=== PATIENT | male | born 1965 | race Caucasian/White ===

== ENCOUNTER 2017-07-15 11:26 | Inpatient (IN) | payer OTHER ==
[2017-07-15 13:47] VITALS: BMI 25.3
--- NOTE | 2017-07-15 15:41 | HP ---
COWS - Scale Resting Pulse: 2= [place] 101-120 Sweatin=Flushed/Facial Moisture Restless Observation: 1= Difficult to Sit Still Pupil Size: 0= Normal to Room Light Bone or Joint Aches: 2= Severe Diffuse Aches Runny Nose/ Eye Tearin= Runny Nose/Eyes GI Upset > 30mins: 2= Nausea/Diarrhea Tremor Observation: 2= Slight Tremor Visible Yawning Observation: 0= None Anxiety or Irritability: 2=Irritable/Anxious Goose Flesh Skin: 3=Piloerection COWS Score: 18 Admission ROS S - HPI Chief Complaint: I need the help to help my family. Allergies/Adverse Reactions: Allergies Allergy/AdvReac Type Severity Reaction Status Date / Time No Known Allergies Allergy Verified 07/15/17 15:28 History of Present Illness: pt is a 52yr old male with a history of heroin dependence seeking detox for treatment. Exam Limitations: Language Barrier (swiss speaking) - Ebola screening Have you traveled outside of the country in the last 21 days: No Have you had contact with anyone from an Ebola affected area: No Have you been sick,other than usual withdrawal symptoms: No Do you have a fever: No - Review of Systems Constitutional: Chills, Diaphoresis, Loss of Appetite, Night Sweats, Changes in sleep EENT: reports: Tearing, Nose Congestion Respiratory: reports: No Symptoms reported Cardiac: reports: No Symptoms Reported GI: reports: Poor Fluid Intake : reports: No Symptoms Reported Musculoskeletal: reports: Back Pain, Joint Pain Integumentary: reports: No Symptoms Reported, Flushing, Sweating Neuro: reports: Numbness, Tingling Endocrine: reports: Excessive Sweating, Flushing, Intolerance to Cold, Intolerance to Heat Hematology: reports: No Symptoms Reported Psychiatric: reports: Judgement Intact, Mood/Affect Appropiate, Orientated x3, Agitated, Anxious Other Systems: Reviewed and Negative Patient History - Patient Medical History Hx Anemia: No Hx Asthma: No Hx Chronic Obstructive Pulmonary Disease (COPD): No Hx Cancer: No Hx Cardiac Disorders: No Hx Congestive Heart Failure: No Hx Hypertension: No Hx Hypercholesterolemia: No Hx Pacemaker: No HX Cerebrovascular Accident: No Hx Seizures: No Hx Dementia: No Hx Diabetes: No Hx Gastrointestinal Disorders: No Hx Liver Disease: No Hx Genitourinary Disorders: No Hx Sexually Transmitted Disorders: No Hx Renal Disease (ESRD): No Hx Thyroid Disease: No Hx Human Immunodeficiency Virus (HIV): No (negative) Hx Hepatitis C: No (negative) Hx Depression: Yes Hx Suicide Attempt: No Hx Bipolar Disorder: No Hx Schizophrenia: No Other Medical History: insomnia - Patient Surgical History Past Surgical History: No Hx Neurologic Surgery: No Hx Cataract Extraction: No Hx Cardiac Surgery: No Hx Lung Surgery: No Hx Breast Surgery: No Hx Breast Biopsy: No Hx Abdominal Surgery: No Hx Appendectomy: No Hx Cholecystectomy: No Hx Genitourinary Surgery: No Hx Section: No Hx Orthopedic Surgery: No Anesthesia Reaction: No - PPD History Previous Implant?: Yes Documented Results: Negative w/o proof PPD to be Administered?: Yes - Reproductive History Patient is a Female of Child Bearing Age (11 -55 yrs old): No - Smoking Cessation Smoking history: Current every day smoker Have you smoked in the past 12 months: Yes Aproximately how many cigarettes per day: 12 Hx Chewing Tobacco Use: No Initiated information on smoking cessation: Yes 'Breaking Loose' booklet given: 07/15/17 - Substance & Tx. History Hx Alcohol Use: No Hx Substance Use: Yes Substance Use Type: Heroin Hx Substance Use Treatment: Yes (last detox [facility] 2014. was clean for 2yrs ) - Substances Abused Heroin Route: Inhalation Frequency: Daily Amount used: 8-10 bags Age of first use: 15 Date of Last Use: 07/15/17 Family Disease History - Family Disease History Family Disease History: Diabetes: Father, Mother, Brother Admission Physical Exam BHS - Vital Signs Vital Signs: Vital Signs - 24 hr 07/15/17 13:45 Temperature 97 F L Pulse Rate 110 H Respiratory 20 Rate Blood Pressure 154/99 - Physical General Appearance: Yes: Appropriately Dressed, Moderate Distress, Tremorous, Irritable, Sweating, Anxious HEENTM: Yes: Hearing grossly Normal, Normal Voice, Nasal Congestion, Rhinorrhea Respiratory: Yes: Lungs Clear, Normal Breath Sounds, No Respiratory Distress Neck: Yes: No masses,lesions,Nodules Breast: Yes: Within Normal Limits Cardiology: Yes: Regular Rhythm, Regular Rate, S1, S2 Abdominal: Yes: Normal Bowel Sounds, Non Tender Genitourinary: Yes: Within Normal Limits Back: Yes: Normal Inspection Musculoskeletal: Yes: full range of Motion, Back pain Extremities: Yes: Normal Capillary Refill, Normal Inspection, Tremors Neurological: Yes: Fully Oriented, Alert, Normal Response Integumentary: Yes: Within Normal Limits, Normal Color, Diaphoresis Lymphatic: Yes: Within Normal Limits - Diagnostic (1) Nicotine dependence Current Visit: Yes Status: Chronic Qualifiers: Nicotine product type: cigarettes Substance use status: uncomplicated Qualified Code(s): F17.210 - Nicotine dependence, cigarettes, uncomplicated (2) Opioid dependence with withdrawal Current Visit: Yes Status: Chronic Cleared for Admission [facility] - Detox or Rehab [facility] Level of Care: Medically Managed Detox Regimen/Protocol: Methadone [facility] Breath Alcohol Content Breath Alcohol Content: 0 Urine Drug Screen - Results Drug Screen Negative: No Urine Drug Screen Results: OPI-Opiates, MET-Methamphetamine, MDMA-Ecstasy, MTD- Methadone
[2017-07-15] MEDS ORDERED: guaiFENesin/D-METHORPHAN HB 10 ML UNIT-DOSE CUPS PO PRN (15:42)
[2017-07-15] MEDS ORDERED: P-EPHED 60MG/TRIPROLIDI 2.5MG TABLET PO PRN (15:42)
[2017-07-15] MEDS ORDERED: NICOTINE POLACRILEX 2 MG GUM BC PRN (15:42)
[2017-07-15] MEDS ORDERED: MAGNESIUM HYDROX 2400MG/30ML ORAL SUSPENSION 30 ML CUP PO PRN (15:42)
[2017-07-15] MEDS ORDERED: IBUPROFEN 400 MG TABLET (FP) PO PRN (15:42)
[2017-07-15] MEDS ORDERED: hydrOXYzine PAMOATE 50 MG CAPSULE (FP) PO PRN (15:42)
[2017-07-15] MEDS ORDERED: ACETAMINOPHEN 325 MG TABLET (FP) PO PRN (15:42)
[2017-07-15] MEDS ORDERED: MENTHOL/PHENOL 1 EACH UD MM PRN (15:42)
[2017-07-15] MEDS ORDERED: diphenhydrAMINE HCL 50 MG CAPSULE PO PRN (15:42)
[2017-07-15] MEDS ORDERED: MAGNESIUM CITRATE 300 ML BOTTLE PO PRN (15:42)
[2017-07-15] MEDS ORDERED: LOPERAMIDE HCL 2 MG CAPSULE PO PRN (15:42)
[2017-07-15] MEDS ORDERED: MAG HYDROX/AL HYDROX/SIMETH 30 ML UNIT-DOSE CUP PO PRN (15:42)
[2017-07-15] MEDS ORDERED: cloNIDine HCL 0.1 MG TABLET PO ONE (17:15)
[2017-07-15] MEDS ORDERED: METHADONE HCL 10 MG TABLET (FOR DETOX USE ONLY) PO ONE ×2 (17:30→23:00)
[2017-07-15] MEDS: diazePAM 5 MG TABLET PO PRN ×2 (18:08→22:19)
[2017-07-15] MEDS: THIAMINE HCL 100 MG TABLET (FP) PO SCH (22:15)
[2017-07-16 01:41] LABS: URINE APPEARANCE SLCLOUDY; URINE BILIRUBIN NEGATIVE (NEGATIVE); URINE BLOOD NEGATIVE (NEGATIVE); URINE COLOR YELLOW; URINE GLUCOSE (UA) NEGATIVE (NEGATIVE); URINE KETONE NEGATIVE (NEGATIVE); URINE LEUK ESTERASE NEGATIVE (NEGATIVE); URINE NITRITE NEGATIVE (NEGATIVE); URINE PROTEIN NEGATIVE (NEGATIVE); URINE UROBILINOGEN NEGATIVE mg/dL (0.2-1.0)
[2017-07-16] MEDS: diazePAM 5 MG TABLET PO PRN ×3 (05:44→22:06)
--- NOTE | 2017-07-16 09:51 | EKG ---
Test Reason : Blood Pressure : / mmHG Vent. Rate : 086 BPM Atrial Rate : 086 BPM P-R Int : 174 ms QRS Dur : 076 ms QT Int : 358 ms P-R-T Axes : 039 063 049 degrees QTc Int : 428 ms NORMAL SINUS RHYTHM NORMAL ECG NO PREVIOUS ECGS AVAILABLE Confirmed by BRIAN BRIDGES, SUSHANT ([id number]) on 07/16/2017 9:50:59 AM Referred By: Confirmed By:SUSHANT TORRES MD
[2017-07-16] MEDS ORDERED: METHADONE HCL 10 MG TABLET (FOR DETOX USE ONLY) PO ONE (10:00)
[2017-07-16 10:10] LABS: MCH 29.3 pg (25.7-33.7); MCHC 33.1 g/dl (32.0-35.9); MEAN CELL VOLUME 88.4 fl (80-96); MEAN PLT VOLUME 7.9 fl (7.5-11.1); PLATELET COUNT 201 K/MM3 (134-434); RDW 13.2 % (11.9-15.9)
[2017-07-16] MEDS: PRENATAL VITAMINS W/ FOLIC ACID TABLET (FP) PO SCH (10:16)
[2017-07-16] MEDS: NICOTINE 14 MG/24 HOURS TOPICAL PATCH TD SCH (10:18)
[2017-07-16 10:31] LABS: ALBUMIN 3.4 g/dl (3.4-5.0); ANION GAP 8 (8-16); CALCIUM 8.7 mg/dL (8.5-10.1); CO2 30 mmol/L (21-32); GLUCOSE,RANDOM 82 mg/dL (74-106)
[2017-07-16 10:35] LABS: ALK PHOS 73 U/L (45-117); BILIRUBIN,TOTAL 0.3 mg/dL (0.2-1.0); CREATININE 0.7 mg/dL (0.7-1.3); SGOT/AST 6 U/L (15-37); SGPT/ALT 17 U/L (12-78); TOT PROT 6.2 g/dl (6.4-8.2)
--- NOTE | 2017-07-16 11:04 | CONSULT ---
[facility] Psychiatric Consult - Data Date of interview: 07/16/17 Admission source: [facility] Identifying data: Readmission to [facility] for this 52 y/o male seeking detox treatment on for heroin dependence.Patient is single without children,domiciled,unemployed and supported on SSI benefits. Substance Abuse History: Confirmed by patient in this session. Smoking Cessation. Smoking history: Current every day smoker. Have you smoked in the past 12 months: Yes. Aproximately how many cigarettes per day: 12. Hx Chewing Tobacco Use: No. Initiated information on smoking cessation: Yes. 'Breaking Loose' booklet given: 07/15/17. - Substance & Tx. History. Hx Alcohol Use: No. Hx Substance Use: Yes. Substance Use Type: Heroin. Hx Substance Use Treatment: Yes (last detox [facility] 2014. was clean for 2yrs ). - Substances Abused. Heroin. Route: Inhalation. Frequency: Daily. Amount used: 8-10 bags. Age of first use: 15. Date of Last Use: 07/15/17 Medical History: Patient endorses good general health. Psychiatric History: Patient reports a history of three psychiatric hospitalizations (in [facility]).Diagnosed with MDD.Medicated with seroquel 50 mg/hs.Followed by Dr Handy at the [facility] in [facility] ( next appointment is already set for 07/22/17).Mr Maldonado denies history of suicide attempts. Physical/Sexual Abuse/Trauma History: No reported history of abuse. Additional Comment: Urine Drug Screen Results: OPI-Opiates, MET-Methamphetamine , MDMA-Ecstasy, MTD-Methadone.Noted. Mental Status Exam - Mental Status Exam Alert and Oriented to: Time, Place, Person Cognitive Function: Good Patient Appearance: Well Groomed Mood: Hopeful, Euthymic Affect: Normal Range Patient Behavior: Appropriate, Cooperative Speech Pattern: Clear, Appropriate (french-speaking,logical,coherent and relevant) Voice Loudness: Normal Thought Process: Goal Oriented Thought Disorder: Not Present Hallucinations: Denies Suicidal Ideation: Denies Homicidal Ideation: Denies Insight/Judgement: Poor Sleep: Poorly, Difficulty falling asleep Appetite: Good Muscle strength/Tone: Normal Gait/Station: Normal Psychiatric Findings - Problem List ([place] 1, 2,3) (1) Opioid dependence with withdrawal Current Visit: Yes Status: Chronic (2) Nicotine dependence Current Visit: Yes Status: Acute Qualifiers: Nicotine product type: cigarettes Substance use status: uncomplicated Qualified Code(s): F17.210 - Nicotine dependence, cigarettes, uncomplicated (3) MDMA abuse Current Visit: Yes Status: Acute (4) Drug-induced mood disorder Current Visit: Yes Status: Chronic (5) Insomnia Current Visit: Yes Status: Acute - Initial Treatment Plan Initial Treatment Plan: Psychoeducation.Detoxification.Seroquel 50 mg po hs.Side effects/benefits are discussed with the patient.He grees to follow this plan of care.Observation.
--- NOTE | 2017-07-16 13:28 | PN ---
BHS COWS - Scale Resting Pulse: 0= [place] 80 or Below Sweatin=Flushed/Facial Moisture Restless Observation: 1= Difficult to Sit Still Pupil Size: 0= Normal to Room Light Bone or Joint Aches: 2= Severe Diffuse Aches Runny Nose/ Eye Tearin= Runny Nose/Eyes GI Upset > 30mins: 2= Nausea/Diarrhea Tremor Observation of Outstretched Hands: 2= Slight Tremor Visible Yawning Observation: 1= 1-2x During Session Anxiety or Irritability: 2=Irritable/Anxious Goose Flesh Skin: 0=Smooth Skin COWS Score: 14 BHS Progress Note (SOAP) Subjective: Body aches,sweating,anxiety,tremors,restless,nausea. Objective: 07/16/17 13:26 Vital Signs - 8 hr 07/16/17 07/16/17 06:36 09:33 Temperature 97.3 F L 97.2 F L Pulse Rate 73 72 Respiratory 16 18 Rate Blood Pressure 101/71 99/58 Laboratory Tests 07/15/17 07/16/17 07/16/17 23:11 07:00 07:00 WBC 6.0 RBC 4.60 Hgb 13.5 Hct 40.7 MCV 88.4 MCH 29.3 MCHC 33.1 RDW 13.2 Plt Count 201 D MPV 7.9 Sodium 141 Potassium 4.5 Chloride 103 Carbon Dioxide 30 Anion Gap 8 BUN 9 D Creatinine 0.7 Creat Clearance w eGFR > 60 Random Glucose 82 Calcium 8.7 Total Bilirubin 0.3 AST 6 L D ALT 17 D Alkaline Phosphatase 73 Total Protein 6.2 L Albumin 3.4 Urine Color Yellow Urine Appearance Slcloudy Urine pH 5.0 Ur Specific [place] >= 1.030 H Urine Protein Negative Urine Glucose (UA) Negative Urine Ketones Negative Urine Blood Negative Urine Nitrite Negative Urine Bilirubin Negative Urine Urobilinogen Negative RPR Titer 07/16/17 07:00 WBC RBC Hgb Hct MCV MCH MCHC RDW Plt Count MPV Sodium Potassium Chloride Carbon Dioxide Anion Gap BUN Creatinine Creat Clearance w eGFR Random Glucose Calcium Total Bilirubin AST ALT Alkaline Phosphatase Total Protein Albumin Urine Color Urine Appearance Urine pH Ur Specific [place] Urine Protein Urine Glucose (UA) Urine Ketones Urine Blood Urine Nitrite Urine Bilirubin Urine Urobilinogen RPR Titer Nonreactive labs noted Assessment: 07/16/17 13:27 Withdrawal sx. Plan: Continue detox
[2017-07-16] MEDS: THIAMINE HCL 100 MG TABLET (FP) PO SCH (22:05)
[2017-07-16] MEDS: QUEtiapine FUMARATE 50 MG TABLET PO SCH (22:06)
[2017-07-17] MEDS: diazePAM 5 MG TABLET PO PRN ×3 (05:40→22:30)
[2017-07-17] MEDS ORDERED: METHADONE HCL 5 MG TABLET (FOR DETOX USE ONLY) PO ONE (10:00)
[2017-07-17] MEDS: NICOTINE 14 MG/24 HOURS TOPICAL PATCH TD SCH (10:27)
[2017-07-17] MEDS: PRENATAL VITAMINS W/ FOLIC ACID TABLET (FP) PO SCH (10:28)
--- NOTE | 2017-07-17 11:55 | PN ---
BHS COWS - Scale Resting Pulse: 0= [place] 80 or Below Sweatin= Chills/Flushing Restless Observation: 0= Sits Still Pupil Size: 0= Normal to Room Light Bone or Joint Aches: 1= Mild Discomfort Runny Nose/ Eye Tearin= Nasal Congestion GI Upset > 30mins: 1= Stomach Cramp Tremor Observation of Outstretched Hands: 2= Slight Tremor Visible Yawning Observation: 2= >3x During Session Anxiety or Irritability: 2=Irritable/Anxious Goose Flesh Skin: 3=Piloerection COWS Score: 13 BHS Progress Note (SOAP) Subjective: Fatigue, Constipation, Tremors. Objective: PT. A & O X 3, OBSERVED AMBULATING ON UNIT. NO ACUTE DISTRESS. 07/17/17 11:53 Vital Signs Temperature 98.8 F 07/17/17 09:28 Pulse Rate 74 07/17/17 09:28 Respiratory Rate 18 07/17/17 09:28 Blood Pressure 108/55 07/17/17 09:28 O2 Sat by Pulse Oximetry (%) Laboratory Tests 07/15/17 07/16/17 07/16/17 23:11 07:00 07:00 WBC 6.0 RBC 4.60 Hgb 13.5 Hct 40.7 MCV 88.4 MCH 29.3 MCHC 33.1 RDW 13.2 Plt Count 201 D MPV 7.9 Sodium 141 Potassium 4.5 Chloride 103 Carbon Dioxide 30 Anion Gap 8 BUN 9 D Creatinine 0.7 Creat Clearance w eGFR > 60 Random Glucose 82 Calcium 8.7 Total Bilirubin 0.3 AST 6 L D ALT 17 D Alkaline Phosphatase 73 Total Protein 6.2 L Albumin 3.4 Urine Color Yellow Urine Appearance Slcloudy Urine pH 5.0 Ur Specific [place] >= 1.030 H Urine Protein Negative Urine Glucose (UA) Negative Urine Ketones Negative Urine Blood Negative Urine Nitrite Negative Urine Bilirubin Negative Urine Urobilinogen Negative RPR Titer 07/16/17 07:00 WBC RBC Hgb Hct MCV MCH MCHC RDW Plt Count MPV Sodium Potassium Chloride Carbon Dioxide Anion Gap BUN Creatinine Creat Clearance w eGFR Random Glucose Calcium Total Bilirubin AST ALT Alkaline Phosphatase Total Protein Albumin Urine Color Urine Appearance Urine pH Ur Specific [place] Urine Protein Urine Glucose (UA) Urine Ketones Urine Blood Urine Nitrite Urine Bilirubin Urine Urobilinogen RPR Titer Nonreactive labs noted. Assessment: 07/17/17 11:54 WITHDRAWAL SYMPTOMS. Plan: CONTINUE DETOX. INCREASE DAILY PO FLUID INTAKE.
[2017-07-17] MEDS: THIAMINE HCL 100 MG TABLET (FP) PO SCH (22:30)
[2017-07-17] MEDS: QUEtiapine FUMARATE 50 MG TABLET PO SCH (22:30)
[2017-07-18] MEDS: diazePAM 5 MG TABLET PO PRN ×3 (05:09→14:39)
[2017-07-18] MEDS ORDERED: METHADONE HCL 10 MG TABLET (FOR DETOX USE ONLY) PO ONE (10:00)
[2017-07-18] MEDS ORDERED: METHADONE HCL 5 MG TABLET (FOR DETOX USE ONLY) PO ONE (10:00)
[2017-07-18] MEDS: NICOTINE 14 MG/24 HOURS TOPICAL PATCH TD SCH (10:31)
[2017-07-18] MEDS: PRENATAL VITAMINS W/ FOLIC ACID TABLET (FP) PO SCH (10:32)
--- NOTE | 2017-07-18 12:18 | PN ---
BHS Progress Note (SOAP) Subjective: ANXIETY,SWEATS,SLIGHT IRRITABILITY. Objective: 07/18/17 12:17 Vital Signs Temperature 97.6 F 07/18/17 09:52 Pulse Rate 93 H 07/18/17 09:52 Respiratory Rate 20 07/18/17 09:52 Blood Pressure 109/75 07/18/17 09:52 O2 Sat by Pulse Oximetry (%) Laboratory Last Values WBC 6.0 K/mm3 (4.0-10.0) 07/16/17 07:00 RBC 4.60 M/mm3 (4.00-5.60) 07/16/17 07:00 Hgb 13.5 GM/dL (11.7-16.9) 07/16/17 07:00 Hct 40.7 % (35.4-49) 07/16/17 07:00 MCV 88.4 fl (80-96) 07/16/17 07:00 MCH 29.3 pg (25.7-33.7) 07/16/17 07:00 MCHC 33.1 g/dl (32.0-35.9) 07/16/17 07:00 RDW 13.2 % (11.9-15.9) 07/16/17 07:00 Plt Count 201 K/MM3 (134-434) D 07/16/17 07:00 MPV 7.9 fl (7.5-11.1) 07/16/17 07:00 Sodium 141 mmol/L (136-145) 07/16/17 07:00 Potassium 4.5 mmol/L (3.5-5.1) 07/16/17 07:00 Chloride 103 mmol/L (98-107) 07/16/17 07:00 Carbon Dioxide 30 mmol/L (21-32) 07/16/17 07:00 Anion Gap 8 (8-16) 07/16/17 07:00 BUN 9 mg/dL (7-18) D 07/16/17 07:00 Creatinine 0.7 mg/dL (0.7-1.3) 07/16/17 07:00 Creat Clearance w eGFR > 60 (>60) 07/16/17 07:00 Random Glucose 82 mg/dL (74-106) 07/16/17 07:00 Calcium 8.7 mg/dL (8.5-10.1) 07/16/17 07:00 Total Bilirubin 0.3 mg/dL (0.2-1.0) 07/16/17 07:00 AST 6 U/L (15-37) L D 07/16/17 07:00 ALT 17 U/L (12-78) D 07/16/17 07:00 Alkaline Phosphatase 73 U/L (45-117) 07/16/17 07:00 Total Protein 6.2 g/dl (6.4-8.2) L 07/16/17 07:00 Albumin 3.4 g/dl (3.4-5.0) 07/16/17 07:00 Urine Color Yellow 07/15/17 23:11 Urine Appearance Slcloudy 07/15/17 23:11 Urine pH 5.0 (5.0-8.0) 07/15/17 23:11 Ur Specific [place] >= 1.030 (1.005-1.025) H 07/15/17 23:11 Urine Protein Negative (NEGATIVE) 07/15/17 23:11 Urine Glucose (UA) Negative (NEGATIVE) 07/15/17 23:11 Urine Ketones Negative (NEGATIVE) 07/15/17 23:11 Urine Blood Negative (NEGATIVE) 07/15/17 23:11 Urine Nitrite Negative (NEGATIVE) 07/15/17 23:11 Urine Bilirubin Negative (NEGATIVE) 07/15/17 23:11 Urine Urobilinogen Negative mg/dL (0.2-1.0) 07/15/17 23:11 RPR Titer Nonreactive (NONREACTIVE) 07/16/17 07:00 Assessment: 07/18/17 12:18 WITHDRAWAL SX Plan: CONTINUE DETOX
[2017-07-18] MEDS: QUEtiapine FUMARATE 50 MG TABLET PO SCH (22:32)
[2017-07-18] MEDS: THIAMINE HCL 100 MG TABLET (FP) PO SCH (22:32)
[2017-07-19] MEDS ORDERED: METHADONE HCL 5 MG TABLET (FOR DETOX USE ONLY) PO ONE (06:00)
[2017-07-19 06:28] VITALS: BP 99/63; PULSE 77; TEMP 97.2
[2017-07-19] MEDS ORDERED: METHADONE HCL 10 MG TABLET (FOR DETOX USE ONLY) PO ONE (10:00)
--- NOTE | 2017-07-19 22:38 | DS ---
[facility] Detox Discharge Summary Admission Date: 07/15/17 Discharge Date: 07/19/17 - History Present History: Opioid Dependence Additional Comments: PATIENT GOING HOME. PATIENT ADVISED TO FOLLOW-UP WITH LOCAL 12-STEP / NA OUTPATIENT PROGRAMS FOR AFTERCARE. PATIENT WAS DISCHARGED FROM DETOX UNIT IN STABLE MEDICAL CONDITION. Pertinent Past History: Insomnia, Depression, MDMA Abuse, Nicotine dependence. - Physical Exam Results Vital Signs: Vital Signs Temperature 97.2 F L 07/19/17 06:27 Pulse Rate 77 07/19/17 06:27 Respiratory Rate 18 07/19/17 06:27 Blood Pressure 99/63 07/19/17 06:27 O2 Sat by Pulse Oximetry (%) Pertinent Admission Physical Exam Findings: WITHDRAWAL SYMPTOMS. Laboratory Tests 07/15/17 07/16/17 07/16/17 23:11 07:00 07:00 WBC 6.0 RBC 4.60 Hgb 13.5 Hct 40.7 MCV 88.4 MCH 29.3 MCHC 33.1 RDW 13.2 Plt Count 201 D MPV 7.9 Sodium 141 Potassium 4.5 Chloride 103 Carbon Dioxide 30 Anion Gap 8 BUN 9 D Creatinine 0.7 Creat Clearance w eGFR > 60 Random Glucose 82 Calcium 8.7 Total Bilirubin 0.3 AST 6 L D ALT 17 D Alkaline Phosphatase 73 Total Protein 6.2 L Albumin 3.4 Urine Color Yellow Urine Appearance Slcloudy Urine pH 5.0 Ur Specific [place] >= 1.030 H Urine Protein Negative Urine Glucose (UA) Negative Urine Ketones Negative Urine Blood Negative Urine Nitrite Negative Urine Bilirubin Negative Urine Urobilinogen Negative RPR Titer 07/16/17 07:00 WBC RBC Hgb Hct MCV MCH MCHC RDW Plt Count MPV Sodium Potassium Chloride Carbon Dioxide Anion Gap BUN Creatinine Creat Clearance w eGFR Random Glucose Calcium Total Bilirubin AST ALT Alkaline Phosphatase Total Protein Albumin Urine Color Urine Appearance Urine pH Ur Specific [place] Urine Protein Urine Glucose (UA) Urine Ketones Urine Blood Urine Nitrite Urine Bilirubin Urine Urobilinogen RPR Titer Nonreactive LABS NOTED. - Treatment Hospital Course: Detox Protocol Followed, Detoxed Safely, Responded well, Discharged Condition Good Patient has Accepted a Rehab Referral to: NO. PT. ADVISED TO FOLLOW-UP WITH LOCAL 12-STEP/NA PROGRAMS FOR AFTERCARE. - Medication Discharge Medications: Ambulatory Orders Quetiapine Fumarate [Seroquel -] 50 mg PO HS 07/15/17 Quetiapine Fumarate [Seroquel -] 50 mg PO HS #30 tablet 07/16/17 - Diagnosis (1) Insomnia Status: Acute Qualifiers: Insomnia type: unspecified Qualified Code(s): G47.00 - Insomnia, unspecified (2) MDMA abuse Status: Acute (3) Nicotine dependence Status: Chronic Qualifiers: Nicotine product type: cigarettes Substance use status: in withdrawal Qualified Code(s): F17.213 - Nicotine dependence, cigarettes, with withdrawal (4) Opioid dependence with withdrawal Status: Acute (5) Drug-induced mood disorder Status: Chronic - AMA Did Patient Leave Against Medical Advice: No
[2017-07-20] MEDS ORDERED: METHADONE HCL 5 MG TABLET (FOR DETOX USE ONLY) PO ONE (06:00)
== END 2017-07-19 11:23 | disposition home or self-care (01) | DRG 773 ==
LOC: YASAS 11:26 → Y3N 16:09
PROVIDERS: ADMIT Internal Medicine; ATTEND Internal Medicine
PROC: HZ2ZZZZ Detoxification Services for Substance Abuse Treatment (ICD-10-PCS; principal; 2017-07-15)
DX: F11.23 Opioid dependence with withdrawal (principal); F15.10 Other stimulant abuse, uncomplicated; F17.213 Nicotine dependence, cigarettes, with withdrawal; F19.24 Other psychoactive substance dependence with psychoactive substance-induced mood disorder; F32.9 Major depressive disorder, single episode, unspecified; G47.00 Insomnia, unspecified
CPT/HCPCS: 36415; 80053; 81003; 85027; 86593; 93005; 93010